=== PATIENT | male | born 1980 | race Caucasian/White ===

== ENCOUNTER 2018-01-09 11:09 | Outpatient (CLI) | payer OTHER ==
--- NOTE | 2018-01-09 13:34 | Ultrasound Report ---
FINAL REPORT EXAM: US TESTICULAR DOPPLER COMP HISTORY: TESTICULAR MASS TECHNIQUE: Ultrasound evaluation of the scrotum and testicles PRIORS: None. FINDINGS: Bilateral testicular parenchymal echotexture is homogenous without solid or cystic mass. Testicular size is within normal limits and symmetric bilaterally. Right testicle size: 4.3 x 2.5 x 3.4 cm Left testicle size: 4.4 x 2.2 x 3.2 cm Color Doppler evaluation manifests bilateral testicular parenchymal blood flow suggesting against torsion. Epididymis: Normal left. Two cystic structures in the region the right epididymal head with right epididymis obscured. One measures 4.2 cm and the other is 1.0 cm. Both contain slightly heterogeneous fluid Varicocele:None Hydrocele: Small bilateral IMPRESSION: No sonographic evidence of testicular pathology Cystic lesions in region of right epididymal head may reflect spermatoceles, largest 4.2 cm, nearly the size of the right testicle Small bilateral hydroceles
== END 2018-01-09 11:10 | disposition home or self-care (01) ==
LOC: US 11:09
PROVIDERS: ATTEND Specialist
DX: N50.89 Other specified disorders of the male genital organs (principal); N43.2 Other hydrocele
CPT/HCPCS: 93975